=== PATIENT | female | born 1990 | race Two or more races ===

== ENCOUNTER 2019-05-19 10:54 | Outpatient (CLI) | payer OTHER | END 2019-05-19 10:56 | disposition home or self-care (01) | LOC: RX STUDY 10:54 | DX: N70.11 Chronic salpingitis (principal); N80.0 Endometriosis of uterus ==

== ENCOUNTER 2019-08-31 09:04 | Emergency (ER) | payer OTHER ==
[~2019-08-31] VITALS: Ht 152.4 cm; Wt 96.2 kg
== END 2019-08-31 16:32 | disposition home or self-care (01) ==
LOC: ER 09:04
DX: O26.891 Other specified pregnancy related conditions, first trimester (principal); R10.2 Pelvic and perineal pain; O36.80X1 Pregnancy with inconclusive fetal viability, fetus 1; Z36.82 Encounter for antenatal screening for nuchal translucency; Z3A.11 11 weeks gestation of pregnancy

== ENCOUNTER → 2019-11-02 | Outpatient (CLI) | payer OTHER | END | disposition home or self-care (01) | LOC: PRENATAL 13:00 | DX: O35.3XX1 Maternal care for (suspected) damage to fetus from viral disease in mother, fetus 1 (principal); O99.212 Obesity complicating pregnancy, second trimester; O99.89 Other specified diseases and conditions complicating pregnancy, childbirth and the puerperium ==

== ENCOUNTER → 2019-12-28 | Outpatient (CLI) | payer OTHER | END | disposition home or self-care (01) | LOC: PRENATAL 13:00 | PROVIDERS: ATTEND Specialist | DX: O26.843 Uterine size-date discrepancy, third trimester (principal); O99.213 Obesity complicating pregnancy, third trimester; O24.410 Gestational diabetes mellitus in pregnancy, diet controlled; Z36.89 Encounter for other specified antenatal screening ==

== ENCOUNTER 2020-01-30 12:23 | Outpatient (CLI) | payer OTHER ==
[2020-01-30] MEDS ORDERED: ASPIR 8181 MG PO (13:01)
[2020-01-30] MEDS ORDERED: FORTAMET500 MG PO (13:01)
[2020-01-30] MEDS ORDERED: DIALYVITE 800-1 EACH PO (13:02)
[2020-01-30] MEDS ORDERED: PRENATAL TABLE1 EAC1 PO (13:02)
== END 2020-01-31 11:44 | disposition home or self-care (01) ==
LOC: OBS/DEL 12:23
PROVIDERS: ATTEND Obstetrics & Gynecology
DX: O24.414 Gestational diabetes mellitus in pregnancy, insulin controlled (principal); O26.893 Other specified pregnancy related conditions, third trimester; R11.2 Nausea with vomiting, unspecified

== ENCOUNTER → 2020-02-02 | Outpatient (CLI) | payer OTHER ==
[~2020-02-02] MED LIST: ASPIR 8181 MG PO; DIALYVITE 800-1 EACH PO; FORTAMET500 MG PO; PRENATAL TABLE1 EAC1 PO
== END | disposition home or self-care (01) ==
LOC: PRENATAL 08:00
PROVIDERS: ATTEND Obstetrics & Gynecology Maternal & Fetal Medicine
DX: O26.843 Uterine size-date discrepancy, third trimester (principal); O24.410 Gestational diabetes mellitus in pregnancy, diet controlled; O99.213 Obesity complicating pregnancy, third trimester; O36.8131 Decreased fetal movements, third trimester, fetus 1; O40.3XX1 Polyhydramnios, third trimester, fetus 1; Z36.89 Encounter for other specified antenatal screening; Z3A.33 33 weeks gestation of pregnancy

== ENCOUNTER 2020-02-03 11:16 | Outpatient (CLI) | payer OTHER ==
[~2020-02-03] VITALS: Ht 154.9 cm; Wt 105.7 kg
== END 2020-02-03 13:00 | disposition home or self-care (01) ==
LOC: OFIC 805 11:16
PROVIDERS: ATTEND Otolaryngology
DX: H81.13 Benign paroxysmal vertigo, bilateral (principal)

== ENCOUNTER 2020-02-22 11:48 | Outpatient (CLI) | payer OTHER | END 2020-02-22 18:25 | disposition home or self-care (01) | LOC: OFIC 805 11:48 | PROVIDERS: ATTEND Otolaryngology | DX: H81.13 Benign paroxysmal vertigo, bilateral (principal) ==

== ENCOUNTER 2020-02-28 11:52 | Inpatient (IN) | payer OTHER ==
[~2020-02-28] VITALS: Ht 154.9 cm; Wt 3.2 kg
== END 2020-03-18 13:39 | disposition home or self-care (01) | DRG 788 ==
LOC: LDR 03-14 06:10 → O/R 03-15 13:04 → OB/GYN 03-15 14:25 → LDR 03-17 13:15 → OB/GYN 03-18 13:39
PROVIDERS: ADMIT Obstetrics & Gynecology; ATTEND Obstetrics & Gynecology
PROC: 4A1HXFZ Monitoring of Products of Conception, Cardiac Rhythm, External Approach (ICD-10-PCS; 2020-03-15)
PROC: 3E033VJ Introduction of Other Hormone into Peripheral Vein, Percutaneous Approach (ICD-10-PCS; 2020-03-15)
PROC: 10D00Z1 Extraction of Products of Conception, Low, Open Approach (ICD-10-PCS; principal; 2020-03-15 13:45)
DX: O65.4 Obstructed labor due to fetopelvic disproportion, unspecified (principal); O24.420 Gestational diabetes mellitus in childbirth, diet controlled; Z3A.39 39 weeks gestation of pregnancy; Z37.0 Single live birth; Z20.828 Contact with and (suspected) exposure to other viral communicable diseases

== ENCOUNTER → 2020-03-06 | Outpatient (CLI) | payer OTHER | END | disposition home or self-care (01) | LOC: PRENATAL 03-01 08:00 | PROVIDERS: ATTEND Obstetrics & Gynecology Maternal & Fetal Medicine | DX: O10.013 Pre-existing essential hypertension complicating pregnancy, third trimester (principal); O26.843 Uterine size-date discrepancy, third trimester; O24.410 Gestational diabetes mellitus in pregnancy, diet controlled; O40.3XX1 Polyhydramnios, third trimester, fetus 1; Z3A.38 38 weeks gestation of pregnancy; Z36.89 Encounter for other specified antenatal screening ==

== ENCOUNTER 2023-07-27 07:53 | Emergency (ER) | payer OTHER ==
[~2023-07-27] VITALS: Ht 154.9 cm; Wt 75.3 kg
[2023-07-27 10:50] LABS: HEMATOCRIT 38.4 % (36.0-45.00); HEMOGLOBIN 12.9 g/dL (12.0-15.00); MEAN CELL VOLUME 88.7 fL (80.00-100.00); MEAN CORPUSCULAR HEMOGLOBIN 29.8 pg (27.00-32.0); MEAN CORPUSCULAR HGB CONC 33.6 g/dl (32.0-36.0); PLATELET COUNT 370 K/uL (150-450); RED BLOOD COUNT 4.33 M/uL (4.00-6.00); RED CELL DISTRIBUTION WIDTH 14.8 % (11.5-14.5)
[2023-07-27 11:07] LABS: CALCIUM 9.1 mg/dL (8.5-10.1); CREATININE SERUM 0.94 mg/dL (0.55-1.02); GFR 67.76; POTASSIUM 4.02 mEq/L (3.5-5.1)
== END 2023-07-27 12:28 | disposition home or self-care (01) ==
LOC: ER 07:53
PROVIDERS: General Practice
DX: N93.9 Abnormal uterine and vaginal bleeding, unspecified (principal); E11.9 Type 2 diabetes mellitus without complications; Z79.84 Long term (current) use of oral hypoglycemic drugs